=== PATIENT | male | born 1990 ===

== ENCOUNTER → 2020-11-12 09:42 | Outpatient (BNVA) | payer OTHER, SELFPAY | PROVIDERS: PCP Physician Assistant; Visit Provider Urology | DX: N46.9 Male infertility, unspecified (principal) | CPT/HCPCS: 99202 ==

== ENCOUNTER → 2021-01-22 09:52 | Outpatient (BNVA) | payer OTHER, SELFPAY | PROVIDERS: PCP Physician Assistant; Visit Provider Urology | DX: N46.9 Male infertility, unspecified (principal) | CPT/HCPCS: 99212 ==